=== PATIENT | male | born 1960 | race Caucasian/White ===

== ENCOUNTER 2019-05-16 08:40 | Day surgery (SDC) | payer OTHER ==
[2019-05-13 09:28] VITALS: BMI 33.8
[~2019-05-16 08:40] MED LIST: LACTATED RINGERS 1,000 ML IV SCH
[2019-05-16 08:55] VITALS: TEMP 97.8
[2019-05-16] MEDS ORDERED: LIDOCAINE 1% 20 ML VIAL (10MG/ML) FOR IV START INTRADERMA ONE (08:55)
[2019-05-16] MEDS ORDERED: LACTATED RINGERS 1,000 ML IV ONE (08:55)
[2019-05-16 09:03] LABS: Glucose,Whole Blood 165 mg/dL (75-99)
[2019-05-16] MEDS ORDERED: PROPOFOL 10 MG/ML 20 ML VIAL IV ONE (09:29)
[2019-05-16] MEDS ORDERED: LIDOCAINE 1% INJ 10MG/ML (20 ML MDV) ONE (09:29)
--- NOTE | 2019-05-16 09:30 | P.GSHP ---
History of Present Illness H&P Date: 05/16/19 Chief Complaint: History of colon polyps 59-year-old male underwent last colonoscopy 4 years ago. The patient had 2 large rectal polyps at this time. Patient is otherwise asymptomatic. No family history of colon cancer. Past Medical History Past Medical History: Hypertension Additional Past Medical History / Comment(s): hx. colon polyps, sees PCP soon for one time elevated blood sugar History of Any Multi-Drug Resistant Organisms: None Reported Past Surgical History: Orthopedic Surgery Additional Past Surgical History / Comment(s): colonoscopy, thumb surg. Past Anesthesia/Blood Transfusion Reactions: No Reported Reaction Smoking Status: Current every day smoker - Past Family History Mother Family Medical History: No Reported History Medications and Allergies Home Medications Medication Instructions Recorded Confirmed Type Losartan Potassium [Cozaar] 100 mg PO DAILY 05/13/19 05/13/19 History Allergies Allergy/AdvReac Type Severity Reaction Status Date / Time No Known Allergies Allergy Verified 05/13/19 08:43 Surgical - Exam Vital Signs Temp Pulse Resp BP Pulse Ox 97.8 F 71 18 125/74 94 L 05/16/19 08:53 05/16/19 08:53 05/16/19 08:53 05/16/19 08:53 05/16/19 08:53 Physical exam: General: Well-developed, well-nourished HEENT: Normocephalic, sclerae nonicteric Abdomen: Nontender, nondistended Extremities: No edema Neuro: Alert and oriented Results - Labs Abnormal Lab Results - Last 24 Hours (Table) 05/16/19 Range/Units 09:01 POC Glucose (mg/dL) 165 H (75-99) mg/dL Assessment and Plan (1) Colon polyp Narrative/Plan: Will proceed with colonoscopy at this time Current Visit: Yes Status: Acute Code(s): K63.5 - POLYP OF COLON SNOMED Code(s): 29450922
--- NOTE | 2019-05-16 09:53 | P.PCN ---
Date of Procedure: 05/16/19 Procedure(s) Performed: PREOPERATIVE DIAGNOSIS: Colon cancer screening, history of polyps POSTOPERATIVE DIAGNOSIS: Transverse colon polyp, rectal polyp PROCEDURE: Colonoscopy with snare polypectomy ANESTHESIA: MAC SURGEON: Gregg Wilkins M.D. SPECIMENS: Polyps ENDOSCOPIC PROCEDURE: The patient was placed on the endoscopy table in the left decubitus position. The Olympus colonoscope was inserted into the anus and passed under direct visualization to the base of the cecum. The appendiceal orifice was visualized. From that point the scope was slowly withdrawn inspecting all surfaces carefully. There were no neoplastic inflammatory or polypoid lesions throughout the cecum, and ascending colon. The transverse colon a small polyp was seen and removed using the snare with cautery technique. The remainder of the transverse descending and sigmoid colon appeared normal. In the rectum a small polyp was seen and removed in a similar fashion. There was no visible diverticulosis. Digital rectal examination was normal. The patient was taken to the recovery room in stable condition per anesthesia guidelines. RECOMMENDATIONS: Await biopsy results. Anticipate follow-up colonoscopy 5 years.
[2019-05-16 10:02] VITALS: RESP 16
[2019-05-16 10:14] VITALS: BP 134/78; PULSE 59
== END 2019-05-16 10:29 | disposition home or self-care (01) ==
LOC: ORWHC2ENDO 08:40
PROVIDERS: ATTEND Surgery
DX: Z12.11 Encounter for screening for malignant neoplasm of colon (principal); Z86.010 Personal history of colon polyps; K63.5 Polyp of colon; K62.1 Rectal polyp; I10 Essential (primary) hypertension; E11.9 Type 2 diabetes mellitus without complications; F17.210 Nicotine dependence, cigarettes, uncomplicated; Z79.899 Other long term (current) drug therapy
CPT/HCPCS: 88305; 45385; J2001; J2704

== ENCOUNTER → 2021-05-06 | Outpatient (CLI) | payer OTHER ==
--- NOTE | 2021-05-06 11:11 | CTL ---
EXAMINATION TYPE: CT Low Dose Lung DATE OF EXAM ORDERED: 05/06/2021 HISTORY: Personal tobacco use. Lung cancer screening CT DLP: 139.8 mGycm Automated exposure control for dose reduction was used. SCREENING VISIT: Initial COMPARISON: None TECHNIQUE: Low dose computed tomography scan was performed through the chest at 1 mm thick sections a nd reconstructed images in the coronal plane at [address] DIAGNOSTIC QUALITY: Satisfactory FINDINGS: LUNG NODULES: None. LUNGS: COPD: Severity: None Fibrosis: Severity: None Lymph nodes: None Other findings: On RIGHT PLEURAL SPACE: Effusion: None Calcification: None Thickening: None Pneumothorax: None LEFT PLEURAL SPACE: Effusion: None Calcification: None Thickening: None Pneumothorax: None HEART: Heart Size: Normal Coronary calcification: None Pericardial effusion: None OTHER FINDINGS: Upper abdomen: Normal Bony thorax: Normal Supraclavicular region: Normal Other: None IMPRESSION: 1. Negative low-dose CT chest FOLLOW UP CT CHEST RECOMMENDATION: Follow-up low-dose CT chest [address] LUNG RAD: Lung-Rad 1 Negative
== END | disposition home or self-care (01) ==
LOC: RADCTMAIN 07:42
PROVIDERS: ATTEND Family Medicine
DX: Z12.2 Encounter for screening for malignant neoplasm of respiratory organs (principal); Z72.0 Tobacco use
CPT/HCPCS: 71271

== ENCOUNTER → 2023-05-25 | Outpatient (CLI) | payer OTHER ==
--- NOTE | 2023-05-25 11:42 | XR ---
EXAMINATION TYPE: XR shoulder complete RT DATE OF EXAM: 05/25/2023 11:29 AM INDICATION: Patient age:Male; 63 years old; Reason for study: WORK COMP S43.401A SPRAIN OF THE RT SHOULDER; COMPARISON: Chest radiograph 06/01/2017 TECHNIQUE: The right shoulder was examined in AP, internally rotated and scapular Y projections. . FINDINGS: No evidence of acute osseous pathology, joint dislocation, or soft tissue swelling. The remaining por tions of the visualized chest are unremarkable. IMPRESSION: No acute osseous pathology.
== END | disposition home or self-care (01) ==
LOC: RADXRMAIN 11:12
PROVIDERS: ATTEND Emergency Medicine
DX: S43.401A Unspecified sprain of right shoulder joint, initial encounter (principal)

== ENCOUNTER → 2023-05-29 | Outpatient (CLI) | payer OTHER ==
--- NOTE | 2023-05-30 21:28 | MR ---
EXAMINATION TYPE: MR shoulder RT wo con DATE OF EXAM: 05/29/2023 COMPARISON: Right shoulder radiograph 05/25/2023 HISTORY: Right shoulder pain, limited ROM, injury 1 week ago. TECHNIQUE: Multiplanar, multisequence imaging of the right shoulder is performed without contrast. FINDINGS: SUPRASPINATUS/INFRASPINATUS: Complete full thickness tear of the supraspinatus and infraspinatus tend ons, both retracted medially 2.3 cm below the level of the acromion. SUBSCAPULARIS: Intact. Mild increased intrasubstance signal, relating to tendinosis. TERES MINOR: Intact. BICEPS: Intact. Normal signal. Normal anchor in the supraglenoid tubercle. Extra-articular portion is appropriately positioned within the bicipital groove. GLENOHUMERAL JOINT: Normal alignment and joint space. Normal cartilage. No effusion. ACROMIOCLAVICULAR JOINT: Mild capsular hypertrophy and slight undersurface osteophytic spurring. Norm al subacromial space. No joint effusion. LABRUM: Normal, given the limitations of a non-arthrographic exam. SUBDELTOID BURSA: Normal. No increased fluid. MUSCLES: Reactive intramuscular edema within the supraspinatus and infraspinatus muscle bellies. BONE MARROW: Normal. OTHER: No additional significant abnormality is appreciated. IMPRESSION: 1. Complete full-thickness retracted tear of the supraspinatus and infraspinatus. 2. Mild subscapularis tendinosis. 3. Mild osteoarthrosis AC joint.
== END | disposition home or self-care (01) ==
LOC: RADMRIMAIN 10:34
PROVIDERS: ATTEND Emergency Medicine
DX: M19.011 Primary osteoarthritis, right shoulder (principal); M67.813 Other specified disorders of tendon, right shoulder; M75.121 Complete rotator cuff tear or rupture of right shoulder, not specified as traumatic; S43.401A Unspecified sprain of right shoulder joint, initial encounter; X58.XXXA Exposure to other specified factors, initial encounter